=== PATIENT | male | born 1955 | race African-American/Black ===

== ENCOUNTER 2022-09-18 17:51 | Inpatient (IN) | payer OTHER, MEDICAID ==
[2022-09-18 19:15] LABS: #Eosinphils 0.3 10x3/uL (0.0-0.5); #Neutrophils 5.8 10x3/uL (1.5-8.4); %Basophils 0.4 % (0.0-2.0); %Eosinophils 3.4 % (0.0-6.0); %Lymphocytes 20.8 % (18.0-47.0); %Monocytes 11.3 % (0.0-10.0); %Neutrophils 63.9 % (40.0-75.0); Hematocrit 24.4 % (38.8-50.0); Hemoglobin 7.6 g/dL (13.5-17.5); Mean Corpuscular HGB CONC 31.1 g/dL (32.0-36.0); Mean Corpuscular Hemoglobin 28.1 pg (27.0-33.0); Mean Corpuscular Volume 90.4 fl (81.2-95.1); Mean Platelet Volume 10.9 fl (7.4-10.4); Platelet Count 301 10x3/uL (150-450); RBC Distribution Width 14.1 % (11.5-14.5)
[2022-09-18] MEDS ORDERED: Vancomycin 1.5 GRAM/300 ML BAG 1.5 GM in Premix Bag 1 BAG IVPB SCH (19:15)
[2022-09-18 19:27] LABS: ALT (SGPT) 7 U/L (8-55); AST (SGOT) 9 U/L (5-34); Alkaline Phosphatase 59 U/L (40-110); Anion Gap 14 mmol/L (10-20); BUN (Urea Nitrogen) 70 mg/dL (8.4-25.7); Bilirubin, Total 0.3 mg/dL (0.2-1.2); Calc. Creatinine Clearance 0 mL/min (70-130); Calcium 7.7 mg/dL (7.8-10.44); Carbon Dioxide 19 mmol/L (23-31); Chloride 111 mmol/L (98-107); Estimated GFR 10; Globulin 3.2 g/dL (2.4-3.5); Glucose 108 mg/dL (80-115); Potassium 4.3 mmol/L (3.5-5.1); Protein, Total 6.2 g/dL (5.8-8.1); Sodium 140 mmol/L (136-145)
[2022-09-18 19:30] LABS: Troponin I 0.032 ng/mL (< 0.028)
[2022-09-18] MEDS ORDERED: Ipratropium/Albuterol 3 ML NEB NEB PRN (20:34)
[2022-09-18] MEDS ORDERED: cefTRIAXone Sodium 2,000 MG in Syringe 0 ML IVPB SCH (20:45)
[2022-09-18] MEDS ORDERED: NIFEdipine XL 30 MG TAB PO SCH (21:45)
[2022-09-18] MEDS ORDERED: Carvedilol 25 MG TAB PO SCH (21:45)
[2022-09-18] MEDS: Terazosin HCl 1 MG CAP PO SCH (22:12)
[2022-09-18] MEDS: Rosuvastatin 10 MG TAB PO SCH (22:12)
[2022-09-18] MEDS: HYDROcodone/Acetaminophen 5/325 mg Tablet PO PRN (22:12)
[2022-09-18 23:12] LABS: Magnesium 1.9 mg/dL (1.6-2.6); Phosphorus 4.7 mg/dL (2.3-4.7)
[2022-09-18 23:18] LABS: Troponin I 0.034 ng/mL (< 0.028)
[2022-09-19] MEDS: cefTRIAXone\\ROCEPHIN 2 GM in Sodium Chloride 0.9% 100 ML IVPB SCH ×2 (00:54→21:21)
[2022-09-19] MEDS: Heparin 5,000 UNITS/ML VIAL SC SCH ×4 (00:54→21:21)
[2022-09-19 02:08] LABS: Troponin I 0.031 ng/mL (< 0.028)
[2022-09-19] MEDS: HYDROcodone/Acetaminophen 5/325 mg Tablet PO PRN ×4 (04:36→21:20)
[2022-09-19 05:26] LABS: #Eosinphils 0.3 10x3/uL (0.0-0.5); #Monocytes 1.3 10x3/uL (0.0-1.1); #Neutrophils 6.3 10x3/uL (1.5-8.4); %Basophils 0.4 % (0.0-2.0); %Eosinophils 2.8 % (0.0-6.0); %Lymphocytes 18.2 % (18.0-47.0); %Monocytes 13.6 % (0.0-10.0); %Neutrophils 64.6 % (40.0-75.0); Hematocrit 22.8 % (38.8-50.0); Hemoglobin 7.1 g/dL (13.5-17.5); Mean Corpuscular HGB CONC 31.1 g/dL (32.0-36.0); Mean Corpuscular Hemoglobin 28.4 pg (27.0-33.0); Mean Corpuscular Volume 91.2 fl (81.2-95.1); Mean Platelet Volume 11.3 fl (7.4-10.4); Platelet Count 242 10x3/uL (150-450); RBC Distribution Width 13.9 % (11.5-14.5); White Blood Cell (WBC) Count 9.8 10x3/uL (3.5-10.5)
[2022-09-19 05:29] VITALS: BMI 39.6
[2022-09-19 05:37] LABS: Anion Gap 15 mmol/L (10-20); BUN (Urea Nitrogen) 64 mg/dL (8.4-25.7); Calc. Creatinine Clearance 23 mL/min (70-130); Calcium 7.6 mg/dL (7.8-10.44); Carbon Dioxide 17 mmol/L (23-31); Chloride 111 mmol/L (98-107); Estimated GFR 11; Glucose 111 mg/dL (80-115); Potassium 4.4 mmol/L (3.5-5.1); Sodium 139 mmol/L (136-145)
[2022-09-19] MEDS: Carvedilol 25 MG TAB PO SCH ×2 (09:00→16:22)
[2022-09-19] MEDS ORDERED: Epoetin (ESRD) 10,000 UNITS/ML VIAL SC SCH (10:15)
[2022-09-19] MEDS: Terazosin HCl 1 MG CAP PO SCH (21:20)
[2022-09-19] MEDS: Rosuvastatin 10 MG TAB PO SCH (21:20)
[2022-09-20] MEDS: Sodium Bicarbonate Tab 325 MG TAB PO SCH ×2 (08:42→22:56)
[2022-09-20] MEDS: Carvedilol 25 MG TAB PO SCH ×2 (08:42→17:09)
[2022-09-20] MEDS: HYDROcodone/Acetaminophen 5/325 mg Tablet PO PRN ×3 (08:45→23:00)
[2022-09-20] MEDS: Heparin 5,000 UNITS/ML VIAL SC SCH ×3 (08:46→22:55)
[2022-09-20 09:19] LABS: #Eosinphils 0.3 10x3/uL (0.0-0.5); #Monocytes 1.2 10x3/uL (0.0-1.1); #Neutrophils 7.1 10x3/uL (1.5-8.4); %Basophils 0.2 % (0.0-2.0); %Eosinophils 2.9 % (0.0-6.0); %Lymphocytes 15.3 % (18.0-47.0); %Monocytes 11.5 % (0.0-10.0); %Neutrophils 69.9 % (40.0-75.0); Hematocrit 23.4 % (38.8-50.0); Hemoglobin 7.1 g/dL (13.5-17.5); Mean Corpuscular HGB CONC 30.3 g/dL (32.0-36.0); Mean Corpuscular Hemoglobin 28.3 pg (27.0-33.0); Mean Corpuscular Volume 93.2 fl (81.2-95.1); Mean Platelet Volume 10.9 fl (7.4-10.4); Platelet Count 251 10x3/uL (150-450); Red Blood Cell (RBC) Count 2.51 10x6/uL (4.32-5.72); White Blood Cell (WBC) Count 10.1 10x3/uL (3.5-10.5)
[2022-09-20 09:23] LABS: Albumin 2.6 g/dL (3.4-4.8); Anion Gap 14 mmol/L (10-20); BUN (Urea Nitrogen) 60 mg/dL (8.4-25.7); BUN/Creatinine Ratio 11.21; Calc. Creatinine Clearance 23 mL/min (70-130); Calcium 7.5 mg/dL (7.8-10.44); Carbon Dioxide 19 mmol/L (23-31); Chloride 112 mmol/L (98-107); Estimated GFR 11; Glucose 99 mg/dL (80-115); Potassium 4.7 mmol/L (3.5-5.1); Sodium 140 mmol/L (136-145)
[2022-09-20] MEDS: Sevelamer Carbonate 800 MG TAB PO SCH (17:11)
[2022-09-20] MEDS: Rosuvastatin 10 MG TAB PO SCH (22:55)
[2022-09-20] MEDS: Terazosin HCl 1 MG CAP PO SCH (22:56)
[2022-09-20] MEDS: cefTRIAXone\\ROCEPHIN 2 GM in Sodium Chloride 0.9% 100 ML IVPB SCH (23:16)
[2022-09-21 04:20] LABS: #Eosinphils 0.3 10x3/uL (0.0-0.5); #Monocytes 1.1 10x3/uL (0.0-1.1); %Basophils 0.3 % (0.0-2.0); %Eosinophils 3.2 % (0.0-6.0); %Lymphocytes 20.2 % (18.0-47.0); %Monocytes 12.1 % (0.0-10.0); %Neutrophils 63.9 % (40.0-75.0); Hematocrit 21.8 % (38.8-50.0); Hemoglobin 6.7 g/dL (13.5-17.5); Mean Corpuscular HGB CONC 30.7 g/dL (32.0-36.0); Mean Corpuscular Hemoglobin 28.5 pg (27.0-33.0); Mean Corpuscular Volume 92.8 fl (81.2-95.1); Platelet Count 272 10x3/uL (150-450); RBC Distribution Width 13.9 % (11.5-14.5); Red Blood Cell (RBC) Count 2.35 10x6/uL (4.32-5.72); White Blood Cell (WBC) Count 9.3 10x3/uL (3.5-10.5)
[2022-09-21 04:36] LABS: Albumin 2.4 g/dL (3.4-4.8); Anion Gap 12 mmol/L (10-20); BUN (Urea Nitrogen) 58 mg/dL (8.4-25.7); BUN/Creatinine Ratio 10.98; Calc. Creatinine Clearance 24 mL/min (70-130); Calcium 7.3 mg/dL (7.8-10.44); Carbon Dioxide 20 mmol/L (23-31); Chloride 112 mmol/L (98-107); Estimated GFR 11; Glucose 97 mg/dL (80-115); Phosphorus 4.8 mg/dL (2.3-4.7); Potassium 4.9 mmol/L (3.5-5.1); Sodium 139 mmol/L (136-145)
[2022-09-21] MEDS: Sevelamer Carbonate 800 MG TAB PO SCH ×3 (08:07→16:54)
[2022-09-21] MEDS: Sodium Bicarbonate Tab 325 MG TAB PO SCH ×2 (08:08→22:30)
[2022-09-21] MEDS: HYDROcodone/Acetaminophen 5/325 mg Tablet PO PRN (08:08)
[2022-09-21] MEDS: Carvedilol 25 MG TAB PO SCH ×2 (08:09→16:54)
[2022-09-21] MEDS: Heparin 5,000 UNITS/ML VIAL SC SCH ×3 (08:10→22:30)
[2022-09-21 10:40] LABS: Iron 26 ug/dL (65-175); Iron Binding Capacity, Total 96 mcg/dL (261-462)
[2022-09-21] MEDS ORDERED: Furosemide 100 MG/10 ML VIAL SLOW IVP SCH (16:00)
[2022-09-21] MEDS: Terazosin HCl 1 MG CAP PO SCH (21:00)
[2022-09-21] MEDS: Rosuvastatin 10 MG TAB PO SCH (22:30)
[2022-09-22] MEDS: cefTRIAXone\\ROCEPHIN 2 GM in Sodium Chloride 0.9% 100 ML IVPB SCH ×2 (05:42→05:47)
[2022-09-22 07:30] LABS: #Eosinphils 0.3 10x3/uL (0.0-0.5); #Monocytes 1.3 10x3/uL (0.0-1.1); #Neutrophils 6.4 10x3/uL (1.5-8.4); %Basophils 0.3 % (0.0-2.0); %Eosinophils 3.3 % (0.0-6.0); %Lymphocytes 20.3 % (18.0-47.0); %Monocytes 12.8 % (0.0-10.0); %Neutrophils 62.9 % (40.0-75.0); Hematocrit 24.9 % (38.8-50.0); Hemoglobin 7.6 g/dL (13.5-17.5); Mean Corpuscular HGB CONC 30.5 g/dL (32.0-36.0); Mean Corpuscular Hemoglobin 28.4 pg (27.0-33.0); Mean Corpuscular Volume 92.9 fl (81.2-95.1); Mean Platelet Volume 10.3 fl (7.4-10.4); Platelet Count 285 10x3/uL (150-450); RBC Distribution Width 13.7 % (11.5-14.5); Red Blood Cell (RBC) Count 2.68 10x6/uL (4.32-5.72); White Blood Cell (WBC) Count 10.2 10x3/uL (3.5-10.5)
[2022-09-22 07:45] LABS: Anion Gap 16 mmol/L (10-20); BUN (Urea Nitrogen) 58 mg/dL (8.4-25.7); Calc. Creatinine Clearance 25 mL/min (70-130); Calcium 7.8 mg/dL (7.8-10.44); Carbon Dioxide 20 mmol/L (23-31); Chloride 110 mmol/L (98-107); Estimated GFR 12; Glucose 80 mg/dL (80-115); Magnesium 1.6 mg/dL (1.6-2.6); Phosphorus 4.5 mg/dL (2.3-4.7); Potassium 4.8 mmol/L (3.5-5.1); Sodium 141 mmol/L (136-145)
[2022-09-22] MEDS ORDERED: Furosemide 40 MG/4 ML VIAL SLOW IVP SCH (08:45)
[2022-09-22] MEDS: Heparin 5,000 UNITS/ML VIAL SC SCH ×3 (09:00→22:52)
[2022-09-22] MEDS: Sevelamer Carbonate 800 MG TAB PO SCH ×3 (09:17→17:46)
[2022-09-22] MEDS: Sodium Bicarbonate Tab 325 MG TAB PO SCH ×2 (09:17→22:52)
[2022-09-22] MEDS: Carvedilol 25 MG TAB PO SCH ×2 (09:17→17:46)
[2022-09-22] MEDS: Furosemide 40 MG/4 ML VIAL SLOW IVP SCH (14:38)
[2022-09-22] MEDS: HYDROcodone/Acetaminophen 5/325 mg Tablet PO PRN ×2 (17:57→22:57)
[2022-09-22] MEDS: Rosuvastatin 10 MG TAB PO SCH (22:52)
[2022-09-22] MEDS: Terazosin HCl 1 MG CAP PO SCH (22:52)
[2022-09-23 04:37] LABS: #Basophils 0.1 10x3/uL (0.0-0.2); #Eosinphils 0.4 10x3/uL (0.0-0.5); #Monocytes 1.6 10x3/uL (0.0-1.1); #Neutrophils 6.9 10x3/uL (1.5-8.4); %Basophils 0.5 % (0.0-2.0); %Eosinophils 3.2 % (0.0-6.0); %Lymphocytes 19.5 % (18.0-47.0); %Neutrophils 62.2 % (40.0-75.0); Hematocrit 25.5 % (38.8-50.0); Hemoglobin 7.9 g/dL (13.5-17.5); Mean Corpuscular Hemoglobin 28.7 pg (27.0-33.0); Mean Corpuscular Volume 92.7 fl (81.2-95.1); Mean Platelet Volume 10.2 fl (7.4-10.4); Platelet Count 312 10x3/uL (150-450); RBC Distribution Width 13.5 % (11.5-14.5); Red Blood Cell (RBC) Count 2.75 10x6/uL (4.32-5.72); White Blood Cell (WBC) Count 11.1 10x3/uL (3.5-10.5)
[2022-09-23 04:54] LABS: Anion Gap 17 mmol/L (10-20); BUN (Urea Nitrogen) 62 mg/dL (8.4-25.7); Calc. Creatinine Clearance 24 mL/min (70-130); Carbon Dioxide 21 mmol/L (23-31); Chloride 108 mmol/L (98-107); Estimated GFR 12; Glucose 92 mg/dL (80-115); Potassium 4.8 mmol/L (3.5-5.1); Sodium 141 mmol/L (136-145)
[2022-09-23] MEDS: Furosemide 40 MG/4 ML VIAL SLOW IVP SCH (06:54)
[2022-09-23] MEDS: cefTRIAXone\\ROCEPHIN 2 GM in Sodium Chloride 0.9% 100 ML IVPB SCH (06:54)
[2022-09-23] MEDS: Sodium Bicarbonate Tab 325 MG TAB PO SCH ×2 (09:18→22:03)
[2022-09-23] MEDS: Sevelamer Carbonate 800 MG TAB PO SCH ×3 (09:18→17:13)
[2022-09-23] MEDS: Heparin 5,000 UNITS/ML VIAL SC SCH ×3 (09:19→22:07)
[2022-09-23] MEDS: Carvedilol 25 MG TAB PO SCH ×2 (09:19→17:13)
[2022-09-23] MEDS ORDERED: Torsemide 20 MG TAB PO SCH (14:00)
[2022-09-23] MEDS: HYDROcodone/Acetaminophen 5/325 mg Tablet PO PRN ×2 (14:08→22:05)
[2022-09-23] MEDS: Rosuvastatin 10 MG TAB PO SCH (22:04)
[2022-09-23] MEDS: Terazosin HCl 1 MG CAP PO SCH (22:04)
[2022-09-24 05:13] LABS: #Eosinphils 0.3 10x3/uL (0.0-0.5); #Monocytes 1.4 10x3/uL (0.0-1.1); #Neutrophils 7.1 10x3/uL (1.5-8.4); %Basophils 0.3 % (0.0-2.0); %Eosinophils 3.2 % (0.0-6.0); %Lymphocytes 17.6 % (18.0-47.0); %Monocytes 12.7 % (0.0-10.0); %Neutrophils 65.5 % (40.0-75.0); Hematocrit 24.1 % (38.8-50.0); Hemoglobin 7.5 g/dL (13.5-17.5); Mean Corpuscular HGB CONC 31.1 g/dL (32.0-36.0); Mean Corpuscular Hemoglobin 28.6 pg (27.0-33.0); Mean Platelet Volume 10.4 fl (7.4-10.4); Platelet Count 294 10x3/uL (150-450); RBC Distribution Width 13.3 % (11.5-14.5); Red Blood Cell (RBC) Count 2.62 10x6/uL (4.32-5.72); White Blood Cell (WBC) Count 10.7 10x3/uL (3.5-10.5)
[2022-09-24 05:31] LABS: Anion Gap 16 mmol/L (10-20); BUN (Urea Nitrogen) 62 mg/dL (8.4-25.7); Calc. Creatinine Clearance 26 mL/min (70-130); Calcium 7.9 mg/dL (7.8-10.44); Carbon Dioxide 22 mmol/L (23-31); Chloride 106 mmol/L (98-107); Estimated GFR 13; Glucose 90 mg/dL (80-115); Potassium 4.8 mmol/L (3.5-5.1); Sodium 139 mmol/L (136-145)
[2022-09-24] MEDS: cefTRIAXone\\ROCEPHIN 2 GM in Sodium Chloride 0.9% 100 ML IVPB SCH (05:58)
[2022-09-24] MEDS: Carvedilol 25 MG TAB PO SCH ×2 (08:47→17:19)
[2022-09-24] MEDS: Heparin 5,000 UNITS/ML VIAL SC SCH ×2 (08:47→14:53)
[2022-09-24] MEDS: Sodium Bicarbonate Tab 325 MG TAB PO SCH (08:47)
[2022-09-24] MEDS: Sevelamer Carbonate 800 MG TAB PO SCH ×3 (08:47→17:00)
[2022-09-24] MEDS ORDERED: Torsemide 20 MG TAB PO SCH ×2 (09:00)
[2022-09-24] MEDS: HYDROcodone/Acetaminophen 5/325 mg Tablet PO PRN (14:11)
[2022-09-24 16:59] VITALS: BP 146/81; TEMP 98.1
[2022-09-26] MEDS ORDERED: Epoetin (ESRD) 10,000 UNITS/ML VIAL IVP SCH (09:00)
== END 2022-09-24 17:51 | disposition home or self-care (01) | DRG 638 ==
LOC: CSHERS 17:51 → CSHTELE 20:29
PROVIDERS: ADMIT Family Medicine; ATTEND Internal Medicine
PROC: 30233N1 Transfusion of Nonautologous Red Blood Cells into Peripheral Vein, Percutaneous Approach (ICD-10-PCS; principal; 2022-09-22)
DX: E11.628 Type 2 diabetes mellitus with other skin complications (principal); E87.20 Acidosis, unspecified; L03.116 Cellulitis of left lower limb; I13.2 Hypertensive heart and chronic kidney disease with heart failure and with stage 5 chronic kidney disease, or end stage renal disease; L97.929 Non-pressure chronic ulcer of unspecified part of left lower leg with unspecified severity; J96.10 Chronic respiratory failure, unspecified whether with hypoxia or hypercapnia; N17.9 Acute kidney failure, unspecified; N18.5 Chronic kidney disease, stage 5; I50.9 Heart failure, unspecified; E11.22 Type 2 diabetes mellitus with diabetic chronic kidney disease; I08.1 Rheumatic disorders of both mitral and tricuspid valves; I89.0 Lymphedema, not elsewhere classified; F17.210 Nicotine dependence, cigarettes, uncomplicated; D63.1 Anemia in chronic kidney disease; E66.9 Obesity, unspecified; N40.0 Benign prostatic hyperplasia without lower urinary tract symptoms; M10.9 Gout, unspecified; J43.9 Emphysema, unspecified; E78.00 Pure hypercholesterolemia, unspecified; I25.10 Atherosclerotic heart disease of native coronary artery without angina pectoris; E88.09 Other disorders of plasma-protein metabolism, not elsewhere classified; E83.39 Other disorders of phosphorus metabolism; S31.000A Unspecified open wound of lower back and pelvis without penetration into retroperitoneum, initial encounter; I25.2 Old myocardial infarction; Z68.39 Body mass index [BMI] 39.0-39.9, adult; Z79.51 Long term (current) use of inhaled steroids; Z79.899 Other long term (current) drug therapy; Z82.49 Family history of ischemic heart disease and other diseases of the circulatory system; Z82.5 Family history of asthma and other chronic lower respiratory diseases; Z71.6 Tobacco abuse counseling; Z79.4 Long term (current) use of insulin
CPT/HCPCS: 36415; 36416; 36430; 80048; 80053; 80069; 82728; 83540; 83550; 83605; 83735; 83880; 83970; 84100; 84484; 85025; 86850; 86900; 86901; 87040; 93005; 93010; 94760; 96374; 97139; J0696; J1644; J1940; J3370; J3490; P9016; Q4081